=== PATIENT | female | born 1960 ===

== ENCOUNTER 2018-06-21 12:16 | Emergency (ER) | payer MEDICAID, OTHER ==
[2018-06-21 13:09] VITALS: RESP 18
--- NOTE | 2018-06-21 13:51 | ED PDOC ---
Arrival/HPI - General Chief Complaint: Hip Pain Time Seen by Provider: 06/21/18 13:09 Past Medical History - Infectious Disease Hx of Infectious Diseases: None - Cardiac Hx Cardiac Disorders: Yes (High cholesterol) - Pulmonary Hx Respiratory Disorders: No - Neurological Hx Neurological Disorder: No - HEENT Hx HEENT Disorder: No - Renal Hx Renal Disorder: No - Endocrine/Metabolic Hx Endocrine Disorders: No - Hematological/Oncological Hx Anemia: Yes - Musculoskeletal/Rheumatological Hx Arthritis: Yes Hx Osteoporosis: Yes - Gastrointestinal Hx Gastrointestinal Disorders: No - Genitourinary/Gynecological Hx Genitourinary Disorders: No - Psychiatric Hx Psychophysiologic Disorder: No Hx Substance Use: No - Surgical History Hx Tubal Ligation: Yes Other/Comment: removal of fibroma - Anesthesia Hx Anesthesia: Yes Hx Anesthesia Reactions: No Family/Social History Smoking Status: Never Smoked Hx Alcohol Use: Yes Frequency of alcohol use: Socially Hx Substance Use: No Allergies/Home Meds Allergies/Adverse Reactions: Allergies No Known Allergies Allergy (Verified 06/21/18 13:07) Home Medications: Home Meds Medication Instructions Recorded Confirmed No Known Home Med 06/21/18 06/21/18 Physical Exam Vital Signs Temp Pulse Resp BP Pulse Ox 06/21/18 13:07 97.6 F 55 L 18 131/78 99 Medical Decision Making - Medication Orders Current Medication Orders: Discontinued Medications Cyclobenzaprine HCl (Flexeril) 10 mg PO ONCE ONE Stop: 06/21/18 13:36 Last Admin: 06/21/18 13:39 Dose: 10 mg Ketorolac Tromethamine (Toradol) 30 mg IM STAT STA Stop: 06/21/18 13:33 Last Admin: 06/21/18 13:39 Dose: 30 mg MAR Pain Assessment Document 06/21/18 13:39 ALQ (Rec: 06/21/18 13:40 ALQ [id number]) Pain Reassessment Is this a pain reassessment? No Sleep Is patient sleeping during reassessment? No Presence of Pain Presence of Pain Yes Pain Scale Used Protocol: PSCALES Pain Scale Used Numeric Location Upper or Lower Lower Pain Location Body Site Back Description Description Constant Intensity of Pain at present 6 Pain Behavior Guarding Irritability IM Administration Charges Document 06/21/18 13:39 ALQ (Rec: 06/21/18 13:40 ALQ [id number]) Injection Site MAR Injection Site Left Deltoid Charges for Administration # of IM Administrations 1 Disposition/Present on Arrival - Present on Arrival History of DVT/PE: No History of Uncontrolled Diabetes: No Urinary Catheter: No - Disposition Forms: [employer] (Chadian)
--- NOTE | 2018-06-21 13:58 | ED PDOC ---
Lower Extremity Pain/Injury Time Seen by Provider: 06/21/18 13:09 Chief Complaint (Nursing): Hip Pain Chief Complaint (Provider): Hip Pain History Per: Patient History/Exam Limitations: no limitations Onset/Duration Of Symptoms: Days (x2) Additional Complaint(s): Patient is a 58 y/o female with a PMHx of anemia, arthritis, hypercholesterolemia, and osteoporosis who presents to the ED for evaluation of left hip and leg pain ongoing for the past two days. Patient reports to have experienced similar pain in the past, claiming it to be a "nerve issue." Patient states that pain has progressively worsened and has been unable to sleep due to discomfort. Patient admits to having trouble walking due to pain. Patient denies numbness or tingling, fever, chills, and night sweats. Patient has not taken any medication for relief. PCP: None Provided Past Medical History Reviewed: Historical Data, Nursing Documentation, Vital Signs Vital Signs: Last Vital Signs Temp 97.6 F 06/21/18 13:07 Pulse 55 L 06/21/18 13:07 Resp 18 06/21/18 13:07 BP 131/78 06/21/18 13:07 Pulse Ox 99 06/21/18 13:07 - Medical History PMH: Anemia, Arthritis, Hypercholesterolemia, Osteoporosis Denies: Diabetes, HTN, Hyperlipidemia, Chronic Kidney Disease - Surgical History Surgical History: No Surg Hx - Family History Family History: States: No Known Family Hx - Home Medications Home Medications: Ambulatory Orders Medication Instructions Recorded Cyclobenzaprine [Cyclobenzaprine 10 mg PO Q8 PRN 7 Days tab 06/21/18 HCl] Ibuprofen [Motrin Tab] 800 mg PO Q6 PRN 7 Days tab 06/21/18 - Allergies Allergies/Adverse Reactions: Allergies Allergy/AdvReac Type Severity Reaction Status Date / Time No Known Allergies Allergy Verified 06/21/18 13:07 Review of Systems ROS Statement: Except As Marked, All Systems Reviewed And Found Negative Constitutional: Negative for: Fever, Chills, Sweats (night) Musculoskeletal: Positive for: Leg Pain (left), Other (left hip) Neurological: Negative for: Numbness (or tingling) Physical Exam - Reviewed Nursing Documentation Reviewed: Yes Vital Signs Reviewed: Yes - Physical Exam Appears: Positive for: Uncomfortable Pulses-Dorsalis Pedis (L): 2+ Extremity: Positive for: Normal ROM (Pain radiating to anterior thigh resulting in pain on flexion of back and left hip; Sensation equal in bilateral lower extremity), Tenderness (to palpation of left back and buttock), Capillary Refill (less than 2 seconds). Negative for: Other (ecchymosis, swelling, or erythema) Neurologic/Psych: Positive for: Alert, Oriented - ECG O2 Sat by Pulse Oximetry: 99 (RA) Pulse Ox Interpretation: Normal Medical Decision Making Medical Decision Making: Time: 1332 Plan: Flexeril 10 mg PO Toradol 30 mg IM Reevaluation Scribe Attestation: Documented by Jorge Washington, acting as a scribe for Marielle MALDONADO. Provider Scribe Attestation: All medical record entries made by the Scribe were at my direction and personally dictated by me. I have reviewed the chart and agree that the record accurately reflects my personal performance of the history, physical exam, medical decision making, and the department course for this patient. I have also personally directed, reviewed, and agree with the discharge instructions and disposition. Disposition - Clinical Impression Clinical Impression: Sciatica - Patient ED Disposition Is Patient to be Admitted: No Counseled Patient/Family Regarding: Studies Performed, Diagnosis, Need For Followup, Rx Given - Disposition Referrals: [facility] [Outside] Disposition Time: 14:26 Condition: STABLE Additional Instructions: Take Ibuprofen and Flexeril as needed for pain. Take it fairly regularly for the next 2 days. Perform sciatica exercises to help with pain. F/u with your primary care physician for further managment. Prescriptions: Cyclobenzaprine [Cyclobenzaprine HCl] 10 mg PO Q8 PRN 7 Days tab PRN Reason: Pain, Moderate (4-7) Ibuprofen [Motrin Tab] 800 mg PO Q6 PRN 7 Days tab PRN Reason: Pain, Moderate (4-7) Instructions: Sciatica (DC), Sciatica Exercises Forms: [facility] (Amharic) Print Language: JOJO HUMPHREY Present On Arrival: None
[2018-06-21 14:32] VITALS: BP 143/77; PULSE 51; TEMP 97.8; O2SAT 100
== END 2018-06-21 14:32 | disposition home or self-care (01) ==
LOC: H.ER 12:16
DX: M54.32 Sciatica, left side (principal); M81.0 Age-related osteoporosis without current pathological fracture; E78.00 Pure hypercholesterolemia, unspecified
CPT/HCPCS: 96372; 99284; J1885